=== PATIENT | male | born 1960 | race Caucasian/White ===

== ENCOUNTER → 2016-07-06 11:52 | Outpatient (CLI) | payer BC ==
[2012-12-19 07:09] VITALS: BMI 27.0
[~2016-07-06 11:52] MED LIST: ASPIRIN325 MG PO; LEVOTHROID25 MCG; NEXIUM40 MG; VALIUM 2 MG TAB2 MG
== END | disposition home or self-care (01) ==
LOC: D.NM 11:52
DX: R10.9 Unspecified abdominal pain (principal)

== ENCOUNTER 2017-06-15 23:06 | Inpatient (IN) | payer OTHER ==
[~2017-06-15] VITALS: Ht 175.3 cm; Wt 88.6 kg
[~2017-06-15 23:06] MED LIST changes: -LEVOTHROID25 MCG; +TIROSINT50 MCG PO
[2017-06-15 23:53] LABS: BASOPHILS 0.2 % (0-2); EOSINOPHILS 0.5 % (0-7); HEMATOCRIT 45.8 % (42.0-54.0); HEMOGLOBIN 15.9 g/dL (13.5-17.5); IMMATURE GRANULOCYTES 0.2 % (0-5); LYMPHOCYTES 14.1 % (15-50); MCH 32.3 pg (26.0-34.0); MCHC 34.7 g/dL (31.0-37.0); MCV 92.9 fL (80.0-100.0); MEAN PLATELET VOLUME 11.3 fL (7.4-10.4); PLATELET COUNT 113 10x3/uL (130-400); RBC 4.93 10x6/uL (4.20-6.10); RDW 12.5 % (11.5-14.5)
[2017-06-16 00:02] LABS: APPEARANCE CLEAR (CLEAR); BILIRUBIN NEGATIVE (NEGATIVE); COLOR DK YELLOW (YELLOW); GLUCOSE NEGATIVE (NEGATIVE); KETONE LARGE mg/dL (NEGATIVE); NITRITE NEGATIVE (NEGATIVE); PROTEIN NEGATIVE (NEGATIVE); SPECIFIC GRAVITY 1.015 (1.005-1.020); UROBILINOGEN NORMAL (NORMAL)
[2017-06-16 00:15] LABS: INR 0.9 (0.85-1.17); PROTIME 11.7 SECONDS (11.6-15.0)
[2017-06-16 00:16] LABS: APTT 36.7 SECONDS (22.8-39.4)
[2017-06-16 00:17] LABS: D-DIMER-QUANTITATIVE 0.4 ug/mLFEU (0.20-0.54)
[2017-06-16 00:30] LABS: ALBUMIN 3.5 g/dL (3.4-5.0); ALKALINE PHOSPHATASE 59 U/L (46-116); ALT (SGPT) 82 U/L (10-68); BILIRUBIN - TOTAL 0.65 mg/dL (0.2-1.3); CALC OSMOLALITY 277 mosm/kg (275-300); CALCIUM 8.2 mg/dL (8.5-10.1); CARBON DIOXIDE 20.3 mmol/L (21.0-32.0); CHLORIDE - SERUM 103 mmol/L (98-107); CREATININE - SERUM 1.5 mg/dL (0.6-1.3); GLUCOSE 97 mg/dL (74-106); PROTEIN - SERUM 7.6 g/dL (6.4-8.2); SODIUM 139 mmol/L (136-145); UREA NITROGEN 13 mg/dL (7-18); eGFR NON AFRICAN AMERICAN 52 mL/min (90-120)
[2017-06-16 00:37] LABS: CKMB 0.2 U/L (0.0-3.6)
[2017-06-16 00:38] LABS: CREATINE KINASE 987 UL (21-232); TROPONIN-I < 0.017 ng/mL (0.000-0.060)
[2017-06-16] MEDS ORDERED: AUGMENTIN 875-11 TAB PO (02:59)
[2017-06-16] MEDS ORDERED: NEXIUM20 MG PO (03:00)
[2017-06-16] MEDS ORDERED: PHENERGAN DM SYR5 ML PO (03:02)
[2017-06-16 03:15] VITALS: BP 130/79; Ht 175.3 cm; Wt 88.6 kg
[2017-06-16 05:24] VITALS: BP 130/79
[2017-06-16 08:23] VITALS: BP 114/74
[2017-06-16 12:33] VITALS: BP 121/77
[2017-06-16 16:19] VITALS: BP 131/78
[2017-06-16 22:58] VITALS: BP 138/84
[2017-06-17 05:32] VITALS: BP 130/84
[2017-06-17 06:45] LABS: BASOPHILS 0.1 % (0-2); EOSINOPHILS 0 % (0-7); HEMATOCRIT 43.1 % (42.0-54.0); HEMOGLOBIN 14.5 g/dL (13.5-17.5); LYMPHOCYTES 26.2 % (15-50); MCH 31.6 pg (26.0-34.0); MCHC 33.6 g/dL (31.0-37.0); MCV 93.9 fL (80.0-100.0); MEAN PLATELET VOLUME 11.7 fL (7.4-10.4); MONOCYTES 9.2 % (2-11); NEUTROPHILS 64.5 % (40-80); PLATELET COUNT 105 10x3/uL (130-400); RBC 4.59 10x6/uL (4.20-6.10); RDW 12.4 % (11.5-14.5); WBC 6.7 10x3/uL (4.8-10.8)
[2017-06-17 07:09] LABS: ALBUMIN 2.9 g/dL (3.4-5.0); ANION GAP 14.4 mmol/L (8-16); BILIRUBIN - TOTAL 0.5 mg/dL (0.2-1.3); CALCIUM 8.4 mg/dL (8.5-10.1); CARBON DIOXIDE 24.8 mmol/L (21.0-32.0); CREATININE - SERUM 1.2 mg/dL (0.6-1.3); POTASSIUM - SERUM 4.2 mmol/L (3.5-5.1); PROTEIN - SERUM 6.2 g/dL (6.4-8.2)
[2017-06-17 08:16] VITALS: BP 99/63
[2017-06-17 12:25] VITALS: BP 140/82
[2017-06-17 15:55] VITALS: BP 129/82
[2017-06-17 21:56] VITALS: BP 122/82
[2017-06-18 01:48] VITALS: BP 115/47
[2017-06-18 09:41] VITALS: BP 120/86
[2017-06-18 13:12] VITALS: BP 123/63
[2017-06-18 14:24] LABS: ALBUMIN 3.2 g/dL (3.4-5.0); ALKALINE PHOSPHATASE 53 U/L (46-116); CALC OSMOLALITY 280 mosm/kg (275-300); CALCIUM 8.6 mg/dL (8.5-10.1); CARBON DIOXIDE 25.6 mmol/L (21.0-32.0); CHLORIDE - SERUM 104 mmol/L (98-107); CKMB 1.1 U/L (0.0-3.6); CREATININE - SERUM 1.3 mg/dL (0.6-1.3); GLUCOSE 88 mg/dL (74-106); POTASSIUM - SERUM 3.6 mmol/L (3.5-5.1); PRO BNP 108 pg/mL (0-125); PROTEIN - SERUM 7.2 g/dL (6.4-8.2); SODIUM 141 mmol/L (136-145); UREA NITROGEN 16 mg/dL (7-18); eGFR NON AFRICAN AMERICAN 61 mL/min (90-120)
[2017-06-18 14:26] LABS: ALT (SGPT) 80 U/L (10-68); CREATINE KINASE 1024 UL (21-232); TROPONIN-I < 0.017 ng/mL (0.000-0.060)
[2017-06-18 14:51] LABS: BASOPHILS 0.2 % (0-2); EOSINOPHILS 0.5 % (0-7); HEMATOCRIT 44.1 % (42.0-54.0); IMMATURE GRANULOCYTES 0.2 % (0-5); LYMPHOCYTES 35.7 % (15-50); MCH 31.8 pg (26.0-34.0); MCV 93.4 fL (80.0-100.0); MEAN PLATELET VOLUME 11.7 fL (7.4-10.4); MONOCYTES 10.1 % (2-11); NEUTROPHILS 53.3 % (40-80); PLATELET COUNT 114 10x3/uL (130-400); RBC 4.72 10x6/uL (4.20-6.10); RDW 12.4 % (11.5-14.5); WBC 4.4 10x3/uL (4.8-10.8)
[2017-06-18 17:17] VITALS: BP 134/86
[2017-06-18 18:59] VITALS: BP 146/87
[2017-06-18 20:10] LABS: CKMB 1.6 U/L (0.0-3.6); TROPONIN-I < 0.017 ng/mL (0.000-0.060)
[2017-06-18 20:27] LABS: CREATINE KINASE 935 UL (21-232)
[2017-06-18 23:01] VITALS: BP 149/84
[2017-06-19 02:12] LABS: CKMB 1.2 U/L (0.0-3.6); CREATINE KINASE 773 UL (21-232); TROPONIN-I < 0.017 ng/mL (0.000-0.060)
[2017-06-19 06:25] VITALS: BP 120/80
[2017-06-19 07:46] LABS: BASOPHILS 0.2 % (0-2); EOSINOPHILS 0.6 % (0-7); HEMATOCRIT 43.1 % (42.0-54.0); HEMOGLOBIN 14.6 g/dL (13.5-17.5); IMMATURE GRANULOCYTES 0.2 % (0-5); LYMPHOCYTES 25.9 % (15-50); MCH 31.6 pg (26.0-34.0); MCHC 33.9 g/dL (31.0-37.0); MCV 93.3 fL (80.0-100.0); MEAN PLATELET VOLUME 11.2 fL (7.4-10.4); MONOCYTES 11.6 % (2-11); NEUTROPHILS 61.5 % (40-80); PLATELET COUNT 113 10x3/uL (130-400); RBC 4.62 10x6/uL (4.20-6.10); RDW 12.1 % (11.5-14.5); WBC 4.7 10x3/uL (4.8-10.8)
[2017-06-19 08:00] LABS: ALBUMIN 3.1 g/dL (3.4-5.0); ANION GAP 14.4 mmol/L (8-16); BILIRUBIN - TOTAL 0.61 mg/dL (0.2-1.3); CALCIUM 8.5 mg/dL (8.5-10.1); CARBON DIOXIDE 25.5 mmol/L (21.0-32.0); CREATININE - SERUM 1.4 mg/dL (0.6-1.3); POTASSIUM - SERUM 3.9 mmol/L (3.5-5.1); PROTEIN - SERUM 7.1 g/dL (6.4-8.2)
[2017-06-19 08:42] VITALS: BP 132/71
[2017-06-19 12:48] VITALS: BP 133/86
[2017-06-19 16:28] VITALS: BP 132/91
[2017-06-19 20:00] VITALS: BP 145/90
[2017-06-20] VITALS: BP 114/71
[2017-06-20 04:00] VITALS: BP 147/94
[2017-06-20 06:51] LABS: BASOPHILS 0.2 % (0-2); EOSINOPHILS 2.3 % (0-7); HEMATOCRIT 41.9 % (42.0-54.0); HEMOGLOBIN 13.9 g/dL (13.5-17.5); IMMATURE GRANULOCYTES 0.4 % (0-5); LYMPHOCYTES 31.6 % (15-50); MCHC 33.2 g/dL (31.0-37.0); MCV 93.5 fL (80.0-100.0); MEAN PLATELET VOLUME 11.1 fL (7.4-10.4); MONOCYTES 8.6 % (2-11); NEUTROPHILS 56.9 % (40-80); PLATELET COUNT 120 10x3/uL (130-400); RBC 4.48 10x6/uL (4.20-6.10); RDW 12.1 % (11.5-14.5); WBC 4.8 10x3/uL (4.8-10.8)
[2017-06-20 07:19] LABS: BILIRUBIN - TOTAL 0.6 mg/dL (0.2-1.3); CALCIUM 8.5 mg/dL (8.5-10.1); CREATININE - SERUM 1.3 mg/dL (0.6-1.3); PROTEIN - SERUM 6.8 g/dL (6.4-8.2)
[2017-06-20 09:21] VITALS: BP 137/85
[2017-06-20] MEDS ORDERED: LEVAQUIN750 MG PO (11:21)
[2017-06-20] MEDS ORDERED: FLORAJEN3 CAPS460 MG PO (11:22)
== END 2017-06-20 12:26 | disposition home or self-care (01) | DRG 189 ==
LOC: D.ER 23:06 → D.MS 06-16 02:06
PROVIDERS: Family Medicine
DX: J96.01 Acute respiratory failure with hypoxia (principal); E87.2 Acidosis; N17.9 Acute kidney failure, unspecified; J11.1 Influenza due to unidentified influenza virus with other respiratory manifestations; E86.0 Dehydration; M60.80 Other myositis, unspecified site

== ENCOUNTER 2020-07-05 10:44 | Day surgery (SDC) | payer BC ==
[~2020-07-05] VITALS: Ht 175.3 cm; Wt 90.9 kg
[~2020-07-05 10:44] MED LIST changes: +AUGMENTIN 875-11 TAB PO; +FLORAJEN3 CAPS460 MG PO; +LEVAQUIN750 MG PO; +NEXIUM20 MG PO; +PHENERGAN DM SYR5 ML PO
[2020-07-05 11:05] LABS: BASOPHILS 0.8 % (0-2); EOSINOPHILS 1.8 % (0-7); HEMATOCRIT 48.8 % (42.0-54.0); HEMOGLOBIN 16.3 g/dL (13.5-17.5); MCH 31.3 pg (26.0-34.0); MCHC 33.5 g/dL (31.0-37.0); MCV 93.5 fL (80.0-100.0); MEAN PLATELET VOLUME 8.7 fL (7.4-10.4); MONOCYTES 7.7 % (2-11); NEUTROPHILS 63.7 % (40-80); RBC 5.22 10x6/uL (4.20-6.10); RDW 12.6 % (11.5-14.5); WBC 6.8 10x3/uL (4.8-10.8)
[2020-07-05 11:06] LABS: PLATELET COUNT 201 10x3/uL (130-400)
[2020-07-05 11:23] LABS: ALBUMIN 4.2 g/dL (3.4-5.0); ANION GAP 10.9 mmol/L (8-16); BILIRUBIN - TOTAL 0.93 mg/dL (0.2-1.3); CALCIUM 9.1 mg/dL (8.5-10.1); CARBON DIOXIDE 28.3 mmol/L (21.0-32.0); CREATININE - SERUM 1.6 mg/dL (0.6-1.3); POTASSIUM - SERUM 4.2 mmol/L (3.5-5.1); PROTEIN - SERUM 8.3 g/dL (6.4-8.2)
[2020-07-05] MEDS ORDERED: LIPITOR20 MG (12:38)
[2020-07-05 12:41] VITALS: BP 125/70; Ht 175.3 cm; Wt 90.9 kg
--- NOTE | 2020-07-05 14:35 | NUR ---
DC TEACHING DONE. VERBALIZED UNDERSTANDING. PIV REMOVED, WITH CATHETER INTACT, FRIEND HELPING PT TO GET DRESSED. 1500 DC'D VIA WC ACCOMPANIED BY THIS NURSE TO POV WITH FRIEND DRIVING. PT/FRIEND HAS ALL BELONGINGS AND DC PACKET.
--- NOTE | 2020-07-06 06:25 | OP ---
PATIENT NAME: SUMIT SCHWARTZ MEDICAL RECORD: [id number] :62 LOCATION:[facility] ADMISSION DATE: SURGEON: BRYANT OLSON DO DATE OF OPERATION: 07/05/2020 PROCEDURE: Colonoscopy with polypectomy. INDICATION FOR PROCEDURE: History of colon polyps, hematochezia, history of internal hemorrhoids. SCOPE: Olympus video pediatric colonoscope. MEDICATIONS: Propofol 400 mg IV per anesthesia. WITHDRAWAL TIME: 17 minutes. ESTIMATED BLOOD LOSS: Minimal. COMPLICATIONS: None. FINDINGS: Informed consent was given. The patient was made comfortable with the above medication. After reaching an adequate level of sedation by slow IV push, the patient was placed on his left side. A digital rectal examination was performed and it was normal. The endoscope was then advanced under direct visualization through the rectum to the cecum, confirmed by the presence of the appendiceal orifice and ileocecal valve. The endoscope was slowly withdrawn and the mucosa was carefully examined. The prep quality was fair. There were multiple polyps visualized on today's examination. Two were located in the descending colon. They were benign-appearing and sessile and ranged in size from 3-4 mm in diameter. They were both removed using hot forceps. In the ascending colon, there was a benign-appearing sessile polyp, which measured approximately 4 mm in diameter. It was removed using a hot forceps. In the transverse colon, there was 1 benign-appearing sessile polyp, which measured approximately 4 mm in diameter. It was removed using hot forceps. In the rectum, there was 1 benign-appearing sessile polyp, which measured approximately 5-6 mm in diameter. It was removed using a hot snare. The polyps were retrieved. Retroflexion was performed in the rectum with visualization of grade II internal hemorrhoids without bleeding. The endoscope was withdrawn from the patient. The patient tolerated the procedure well. There were no complications. IMPRESSION: 1. Five polyps as described above, removed using a combination of a hot snare and hot forceps. 2. Grade II internal hemorrhoids without bleeding. PLAN AND RECOMMENDATIONS: 1. Discharge home when recovery parameters are met. 2. Follow up biopsy specimen results. 3. High fiber diet. 4. Continue current medications. 5. Consider supplementing diet with 1-2 tablespoons of fiber daily. 6. Recall colonoscopy within 3 years. TRANSINT:[id number] Voice Confirmation ID: [id number] DOCUMENT ID: [id number] OPERATIVE REPORT [id number] SUMIT SCHWARTZ,BRYANT Graham DO at 0625 CC: [id number] DICTATION DATE: 07/05/20 140 BILINGUAL BRANCH MANAGER: 07/05/20 1730 [facility] 07/05/20 [place] [id number] [place] [id number]
== END 2020-07-05 15:00 | disposition home or self-care (01) ==
LOC: D.OPS 10:44
PROVIDERS: ATTEND Internal Medicine Gastroenterology
DX: Z86.010 Personal history of colon polyps (principal); K92.1 Melena; K64.8 Other hemorrhoids; K63.5 Polyp of colon; K64.1 Second degree hemorrhoids

== ENCOUNTER 2020-07-12 06:09 | Day surgery (SDC) | payer BC ==
[~2020-07-12] VITALS: Ht 175.3 cm; Wt 93.2 kg
[~2020-07-12 06:09] MED LIST changes: +LIPITOR20 MG
[2020-07-12] MEDS ORDERED: OMEPRAZOLE20 M1 PO (07:23)
[2020-07-12 07:35] VITALS: Ht 175.3 cm; Wt 93.2 kg
--- NOTE | 2020-07-12 08:54 | NUR ---
DR OLSON AT BEDSIDE 0906 DC TEACHING TO PT, ACKNOWLEDGES UNDERSTANDING. 0950 PIV DC'D WITH CATHETER INTACT. EATING JENNIFER CRACKERS AND PB, GETTING DRESSED 1004 PT DC'D TO POV WITH ALL BELONGINGS AND DC PACKET WITH FRIEND-EMILY DRIVING.
--- NOTE | 2020-07-14 06:46 | OP ---
PATIENT NAME: SUMIT SCHWARTZ MEDICAL RECORD: [id number] :62 LOCATION:[facility] ADMISSION DATE: SURGEON: BRYANT OLSON DO DATE OF OPERATION: 07/12/2020 PROCEDURE: EGD with biopsies. INDICATION FOR PROCEDURE: GERD, nausea, and vomiting. SCOPE: Olympus video gastroscope. MEDICATIONS: Propofol 200 mg IV per anesthesia. ESTIMATED BLOOD LOSS: Minimal. COMPLICATIONS: None. FINDINGS: Informed consent was given. The patient was made comfortable with the above medication. After reaching an adequate level of sedation by slow IV push, the patient was placed on his left side. The endoscope was advanced under direct visualization through the mouth to the second portion of the duodenum with ease. The esophagus appeared normal down to the GE junction. At the GE junction, there was evidence of LA class A reflux-induced esophagitis. Cold forceps biopsies were taken from the mid esophagus to rule out the presence of eosinophils and at the GE junction to rule out the presence of White's mucosa. The endoscope was advanced beyond the GE junction into the stomach and retroflexed to view the cardia and fundus. There was a small sliding hiatal hernia present. There were no associated ulcers or other abnormalities. There were a few benign appearing fundic gland polyps throughout the fundus and body of the stomach. Biopsy was taken to confirm their benign nature. The body of the stomach otherwise appeared normal down to the antrum where there were some mild chronic gastritis changes consisting of erythema and granularity. Cold forceps biopsies were taken from the antrum and incisura to submit for histopathology and to rule out the presence of H. pylori. The endoscope was advanced beyond the pylorus into the duodenum, which appeared normal to the second portion. The endoscope was withdrawn from the patient. The patient tolerated the procedure well and there were no complications. IMPRESSION: 1. LA class A reflux-induced esophagitis. 2. Small sliding hiatal hernia. 3. Few benign-appearing fundic gland type gastric polyps. 4. Mild chronic gastritis changes. PLAN AND RECOMMENDATIONS: 1. Discharge home when recovery parameters are met. 2. Follow up biopsy specimen results. 3. GERD diet and reflux precautions. 4. Continue Prilosec 20 mg dose equivalent daily. Prescription will be provided. 5. Follow up in GI clinic as needed. TRANSINT:[id number] Voice Confirmation ID: [id number] DOCUMENT ID: [id number] OPERATIVE REPORT [id number] SUMTI SCHWARTZ,BRYANT Graham DO at 0646 CC: [id number] DICTATION DATE: 07/12/20840 DISTRICT LOSS PREVENTION MANAGER: 07/13/20 232 [facility] 07/12/20 [place] [id number] [place] [id number]
== END 2020-07-12 10:04 | disposition home or self-care (01) ==
LOC: D.OPS 06:09
PROVIDERS: ATTEND Internal Medicine Gastroenterology
DX: K21.00 Gastro-esophageal reflux disease with esophagitis, without bleeding (principal); R11.2 Nausea with vomiting, unspecified; K44.9 Diaphragmatic hernia without obstruction or gangrene; K31.7 Polyp of stomach and duodenum; K29.70 Gastritis, unspecified, without bleeding; E07.9 Disorder of thyroid, unspecified